=== PATIENT | female | born 1960 | race Two or more races ===

== ENCOUNTER 2019-01-03 18:56 | Emergency (ER) | payer BC ==
[~2019-01-03] VITALS: Ht 157.5 cm; Wt 63.5 kg
--- NOTE | 2019-01-03 19:15 | NUR ---
Dr. Jenkins at the bedside for MSE.
[2019-01-03] MEDS ORDERED: ACETAMINOPHEN ES 500 MG TABLET ONE (19:28)
[2019-01-03] MEDS ORDERED: CEFAZOLIN 1 G VIAL ONE (19:29)
[2019-01-03] MEDS ORDERED: ACETAMINOPHEN ES 500 MG TABLET PO ONE (19:30)
[2019-01-03] MEDS ORDERED: CEFAZOLIN 1 G VIAL IM ONE (19:30)
--- NOTE | 2019-01-03 20:30 | NUR ---
D/c to lung sounds clear no s/s of allergic reaction to a/b therapy. Soft arm splint and sling applied. D/c to home with c/d of x-ray report. Advised to f/u with ortho and setup a appointment. D/c to home
[2019-01-03 20:36] VITALS: BP 110/62
== END 2019-01-03 20:35 | disposition home or self-care (01) ==
LOC: ER 18:59
DX: S42.452A Displaced fracture of lateral condyle of left humerus, initial encounter for closed fracture (principal); L03.115 Cellulitis of right lower limb; W18.40XA Slipping, tripping and stumbling without falling, unspecified, initial encounter; Y93.89 Activity, other specified; Y92.89 Other specified places as the place of occurrence of the external cause; Y99.8 Other external cause status
CPT/HCPCS: 29105; 73080; 73660; 96372; 99283; J0690; A4663; A9150